=== PATIENT | female | born 1975 | race Caucasian/White ===

== ENCOUNTER → 2023-06-03 08:22 | Outpatient (REF) | payer OTHER, SELFPAY | LOC: RAD 08:22 | PROVIDERS: ATTENDING PHYSICIAN Internal Medicine | DX: M62.89 Other specified disorders of muscle (principal); N81.6 Rectocele; K59.02 Outlet dysfunction constipation | CPT/HCPCS: 74270 ==

== ENCOUNTER 2024-02-22 06:14 | Day surgery (SDC) | payer OTHER, SELFPAY ==
[2024-02-14 15:23] LABS: % Basophils 0.2 % (0-2); % Eosinophils 4.1 % (0-6); % Immature Granulocytes 0.2 % (0-0.5); % Lymphocytes 23.5 % (20.5-51.1); % Monocytes 7.1 % (1.7-9.3); % Neutrophils 64.9 % (42.2-75.2); Absolute Eosinophils 0.3 10^3/uL (0-0.7); Absolute Lymphocytes 1.4 10^3/uL (1.2-3.4); Absolute Monocytes 0.4 10^3/uL (0.1-0.6); Hematocrit 36.5 % (37.0-47.0); Mean Corp Hgb Conc. 35.6 g/dL (33.0-37.0); Mean Corpuscular Hgb 31.4 pg (27.0-31.0); Mean Corpuscular Volume 88.2 fL (81.0-99.0); Nucleated Red Blood Cells % 0 %; Platelet Count 192 10^3/uL (130-400); Red Blood Cell Count 4.14 10^6/uL (4.20-5.40); Red Cell Dist. Width 11.6 % (11.5-14.5); White Blood Cell Count 6.1 10^3/uL (4.8-10.8)
[2024-02-14 15:43] LABS: Blood Urea Nitrogen 15 mg/dl (7-17); Calcium 9.4 mg/dl (8.4-10.2); Carbon Dioxide 27 mmol/L (22-30); Chloride 99 mmol/L (98-107); Glucose 81 mg/dl (70-99); Sodium 139 mmol/L (135-145); eGFR > 60.00
[2024-02-22] VITALS (16 sets, daily range): BP systolic 122–157; BP diastolic 79–100; BMI 23.3
[2024-02-22] MEDS: Pyridium 200 MG PO (07:19)
[2024-02-22] MEDS: DILAUDID 0.5 MG IV ×2 (11:52→12:22)
[2024-02-22] MEDS: TORADOL 30 MG IV (11:54)
[2024-02-22] MEDS: ROXICODONE 5 MG PO (14:51)
== END 2024-02-22 16:31 | disposition home or self-care (01) ==
LOC: SDS 06:14
PROVIDERS: ATTENDING PHYSICIAN Obstetrics & Gynecology; FAMILY PHYSICIAN Nurse Practitioner Gerontology
DX: N81.10 Cystocele, unspecified (principal); N81.6 Rectocele; N39.3 Stress incontinence (female) (male); K59.00 Constipation, unspecified; R15.9 Full incontinence of feces; N80.03 Adenomyosis of the uterus; D25.0 Submucous leiomyoma of uterus; N83.8 Other noninflammatory disorders of ovary, fallopian tube and broad ligament; N36.41 Hypermobility of urethra
CPT/HCPCS: 58571; 57283; 57250; 57288; 88305; 36415; 80048; 85025; 86850; 86900; 86901; 93005; C1771